=== PATIENT | male | born 1955 | race Caucasian/White ===

== ENCOUNTER → 2018-09-16 | Outpatient (CLI) | payer OTHER ==
[~2018-09-16] VITALS: Ht 180.3 cm; Wt 138.3 kg
[~2018-09-16] MED LIST: ACCUPRIL40 MG PO; AMLODIPINE BESY10 MG PO; AMLODIPINE BESYL5 MG PO; ASPIRIN EC325 M1 PO; AUGMENTIN 875875 M1 PO; BYSTOLIC 5 MG5 M1; BYSTOLIC10 MG PO; CELEBREX 200 M200 M1 PO; CENTRUM SILVER1 EAC4 PO; COLACE100 MG PO; DUONEB 2.5-0.5 M3 ML INH; EFFIENT10 MG PO; FISH OIL 1,0001 EAC5 PO; HYDROCHLOROTHIA25 M1 PO; LASIX 40 MG TAB40 M1 PO; LIPITOR 20 MG T20 M1 PO; MULTIVITAMINS1 EAC7; NICOTINE TRANSD21 M1 TRANSDERM; OMEPRAZOLE 20 M20 M1 PO; OXYCONTIN CR 1010 MG PO; PERCOCET 10-321 EACH PO; POTASSIUM CHLO10 ME1 PO; PREDNISONE 5 MG5 M1 PO; PROAIR HFA8.5 GM INH; QUINU10 PD PO; ROBAXIN 750 MG750 M1 PO; SYMBICORT160 MCG/4. INH; VASCEPA1 GM PO; VENTOLIN HFA INH8 GM INH; VYTORIN 10-201 EACH PO; VYTORIN 10-401 EACH PO; ZOLOFT100 MG PO
[2018-09-16 07:11] VITALS: BP 154/76
--- NOTE | 2018-09-21 15:38 | CATHLAB ---
[facility] [place] [address] INVASIVE PROCEDURE REPORT Name: KORIN MOFFETT Room #: REG CL [place]#: [id number] ������������� Admission: 09/16/18 ������������� Attend Phys: Jose Camacho, Discharge: ��� ������������� ��� Date of : 51 Date of Service: 09/21/18 1538 �� Report #: [id number] �������� ��������������������������������������������[id number] THIS REPORT FOR: //name// APPROVED REPORT Study performed: 09/16/2018 07:55:03 Patient Details The patient is a 63 year-old male Event Personnel Jose Camacho Probation Supervisor, Effie Lozoya RN, Aliza Weber Jackson, Valisa Monitor Procedures Performed Right and Left Heart Cath w/or w/o Coronarie [id number] [facility] Indication Chest pain Procedure Narrative The Right Groin^ was infiltrated with 1% Lidocaine subcutaneous anesthesia. A Right Heart Catheterization was performed with a 7 Fr. Sylvester-Anshu catheter and pressure were recorded. Cardiac outputs were obtained by the Thermal Dilution method. A PINNACLE 6FR Sheath #[id number] sheath was inserted into the RFA^. Coronary angiography was performed using coronary diagnostic catheters. The right coronary system was accessed and visualized with a JR4 catheter. The left coronary system was accessed and visualized with a JL4 catheter. The left ventricle was accessed and visualized with a PIGTAIL catheter. Left ventriculogram was performed in TRIANA projection. An aortogram of the abdominal aorta was performed. Pre-demployment femoral angiogram was performed . Closure device was deployed with a Fr MYNXGRIP 6/7F [id number]. Hemostasis was obtained with manual pressure following sheath removal without any complications. The patient tolerated the procedure well and there were no complications associated with the procedure. There was no hematoma. Intraoperative Conscious Sedation Sedation start time: 0810 Case end Time: 0850 Fentanyl 100 mcg Versed 2.0 mg Fluoro Time: 5.10 minutes [facility] [place] [address] INVASIVE PROCEDURE REPORT Name: KORIN MOFFETT J CARLOS Room #: REG [facility]#: [id number] ������������� Admission: 09/16/18 ������������� Attend Phys: Jose Camacho, Discharge: ��� ������������� ��� Date of : 51 Date of Service: 09/21/18 1538 �� Report #: [id number] �������� ��������������������������������������������[id number] Dose: DAP 21288.00 cGycm2 1513 mGy Contrast Type and Amount: Omnipaque 145 ml Hemodynamics The right atrial mean pressure is 15 mmHg. The pulmonary artery pressure is 55/23 mmHg with a mean of 36 mmHg. The mean pulmonary capillary wedge pressure is 17 mmHg. The aortic pressure is 133/70 mmHg with a mean of 96 mmHg. The left ventricular pressure is 148/7 mmHg with a mean of mmHg. The left ventricular end diastolic pressure is 28 mmHg. The cardiac output using thermo method is 7.93 L/min. The cardiac index using thermo method is 3.15 L/min/m2. Conclusion #1 normal left ventricular size with inferior basilar akinesis EF 45-50% #2 abdominal aorta mildly tortuous but no occlusive disease renal arteries appear patent #3 long left main with mild distal narrowing giving rise to LAD and circumflex nonocclusive #4 LAD extends around the apex mild disease proximal provides collateral filling to a small PDA through a collateral branch #5 circumflex OM with mild disease large but nondominant #6 right coronary artery with proximal stent with mild in-stent restenosis proximal mid segment 50% unchanged the PDA is distally occluded and filled via the left system. #7 subtle right heart catheterization with cardiac output by thermodilution see above hemodynamics. ��������������������������������������������� <ELECTRONICALLY SIGNED> ���������������������������������������� By: Jose Camacho MD, FACC ��������������������������������������������� 09/21/18 1538 1538 1538 Jose Camacho MD, FACC /INF
== END | disposition home or self-care (01) ==
LOC: CATH 06:34
DX: I25.10 Atherosclerotic heart disease of native coronary artery without angina pectoris (principal); T82.855A Stenosis of coronary artery stent, initial encounter; I10 Essential (primary) hypertension; I25.2 Old myocardial infarction; E78.5 Hyperlipidemia, unspecified; J44.9 Chronic obstructive pulmonary disease, unspecified; K21.9 Gastro-esophageal reflux disease without esophagitis; E66.09 Other obesity due to excess calories; G47.33 Obstructive sleep apnea (adult) (pediatric); Z98.890 Other specified postprocedural states; Z79.899 Other long term (current) drug therapy; Z95.5 Presence of coronary angioplasty implant and graft; Z87.891 Personal history of nicotine dependence

== ENCOUNTER → 2019-05-19 | Outpatient (CLI) | payer OTHER | LOC: RAD 09:48 | DX: I51.7 Cardiomegaly (principal); J92.9 Pleural plaque without asbestos; J44.9 Chronic obstructive pulmonary disease, unspecified ==

== ENCOUNTER → 2019-05-25 | Outpatient (CLI) | payer OTHER | LOC: CAT 11:14 | DX: Z12.2 Encounter for screening for malignant neoplasm of respiratory organs (principal); R91.1 Solitary pulmonary nodule; J98.4 Other disorders of lung; Z87.891 Personal history of nicotine dependence ==

== ENCOUNTER 2019-06-19 13:37 | Emergency (ER) | payer OTHER ==
[~2019-06-19] VITALS: Ht 180.3 cm; Wt 138.3 kg
--- NOTE | ~2019-06-19 | EKG ---
[facility] [place] [address] ELECTROCARDIOGRAM REPORT Name: ZUHAIRKORIN AMBRIZ Room #: PRE M..#: [id number] Admission: Attend Phys: Discharge: Date of : 51 Report #: [id number] THIS REPORT FOR: cc: Ruby Beltran MD ~ THIS REPORT FOR: //name// [facility] ED Test Date: 2019-06-19 Test Time: 13:40:08 Pat Name: KORIN MOFFETT Department: Room: Gender: M Dining Manager: JEISON : 1955 Requested By: Mariela Suarez Order Number: [id number] MD: Measurements Intervals [place] Rate: 81 P: -53 CA: 244 QRS: -82 QRSD: 146 T: 58 QT: 414 QTc: 481 Interpretive Statements Sinus or ectopic atrial rhythm Ventricular trigeminy Prolonged CA interval RBBB and LAFB Compared to ECG 07/01/2014 06:40:32 Ectopic atrial rhythm now present Ventricular premature complex(es) now present Left anterior fascicular block now present Right bundle-branch block now present Sinus rhythm no longer present Myocardial infarct finding no longer present [email or web address] By: 1340 1340 [place], [place] /EPI
[2019-06-19] MEDS ORDERED: CHILDREN'S ASPI81 M1 PO (13:46)
[2019-06-19 13:56] LABS: ABSOLUTE NEUTROPHILS 8.9 thou/uL (1.4-8.2); BASOPHILS 0.6 % (0.0-2.0); EOSINOPHILS 0.5 % (0.0-3.0); HEMATOCRIT 45.1 % (42.0-52.0); HEMOGLOBIN 14.8 gm/dL (14.0-18.0); LYMPHOCYTES 7.2 % (24.0-44.0); MCH 32.3 pg (26.0-34.0); MCHC 32.7 g/dL (28.0-37.0); MCV 98.5 fL (80.0-100.0); MONOCYTES 10.2 % (1.0-8.0); PLATELET COUNT 174 thou/uL (150-400); POLYS 81.5 % (36.0-66.0); RBC 4.58 mil/uL (4.50-6.00); RDW 13.9 % (10.5-14.5); WBC 10.9 thou/uL (4.0-11.0)
[2019-06-19 14:05] LABS: CALCIUM 8.6 mg/dL (8.5-10.1); CREATININE 1.2 mg/dL (0.7-1.3); POTASSIUM 3.7 mmol/L (3.5-5.1)
[2019-06-19 14:11] LABS: ALBUMIN 3.7 g/dL (3.4-5.0); TOTAL BILIRUBIN 0.8 mg/dL (<0.1-1.0); TOTAL PROTEIN 7.5 g/dL (6.4-8.2)
[2019-06-19 14:36] LABS: URINE BILIRUBIN NEGATIVE (Negative); URINE BLOOD 1+ (Negative); URINE CLARITY CLEAR; URINE COLOR YELLOW; URINE GLUCOSE-RANDOM* NEGATIVE (Negative); URINE KETONES NEGATIVE (Negative); URINE LEUKOCYTES-REFLEX NEGATIVE (Negative); URINE NITRITE-REFLEX NEGATIVE (Negative); URINE PROTEIN (DIPSTICK) 2+ (Negative); URINE SPECIFIC GRAVITY >= 1.030 (1.005-1.035); URINE UROBILINOGEN 0.2 E.U./dl (0.2-1.0)
[2019-06-19 14:47] LABS: BACTERIA-REFLEX None Seen /HPF (None Seen); CASTS None Seen /LPF (None Seen); CRYSTALS None Seen /LPF (None Seen); SQUAMOUS 0-3 Few /LPF (0-3); URINE RBC 0-2 Rare /HPF (0-2); URINE WBC-REFLEX 0-5 Rare /HPF (0-5)
[2019-06-19] MEDS ORDERED: NORCO 5-325 TA1 EAC1 PO (15:53)
[2019-06-19] MEDS ORDERED: IBUPROFEN 400400 M2 PO (15:53)
[2019-06-19] MEDS ORDERED: ZOFRAN ODT4 MG PO (15:53)
[2019-06-19 16:27] VITALS: BP 114/54
== END 2019-06-19 16:29 | disposition home or self-care (01) ==
LOC: ER 13:37
PROVIDERS: Emergency Medicine; Nurse Practitioner Family
DX: J11.1 Influenza due to unidentified influenza virus with other respiratory manifestations (principal); I10 Essential (primary) hypertension; J44.9 Chronic obstructive pulmonary disease, unspecified; K21.9 Gastro-esophageal reflux disease without esophagitis; G47.30 Sleep apnea, unspecified; F17.210 Nicotine dependence, cigarettes, uncomplicated; Z95.5 Presence of coronary angioplasty implant and graft

== ENCOUNTER → 2019-11-21 | Outpatient (CLI) | payer OTHER ==
[~2019-11-21] MED LIST changes: +CHILDREN'S ASPI81 M1 PO; +IBUPROFEN 400400 M2 PO; +NORCO 5-325 TA1 EAC1 PO; +ZOFRAN ODT4 MG PO
== END ==
LOC: CAT 12:43
PROVIDERS: ATTEND Internal Medicine
DX: R91.8 Other nonspecific abnormal finding of lung field (principal)

== ENCOUNTER → 2020-06-01 | Outpatient (CLI) | payer OTHER | LOC: SJCVC 15:11 | PROVIDERS: ATTEND Internal Medicine Cardiovascular Disease | DX: R94.31 Abnormal electrocardiogram [ECG] [EKG] (principal); I45.10 Unspecified right bundle-branch block; I25.10 Atherosclerotic heart disease of native coronary artery without angina pectoris; I10 Essential (primary) hypertension; E78.00 Pure hypercholesterolemia, unspecified; I25.5 Ischemic cardiomyopathy; J44.9 Chronic obstructive pulmonary disease, unspecified; R06.02 Shortness of breath; K21.9 Gastro-esophageal reflux disease without esophagitis; F17.210 Nicotine dependence, cigarettes, uncomplicated; Z86.74 Personal history of sudden cardiac arrest; Z87.01 Personal history of pneumonia (recurrent); Z79.899 Other long term (current) drug therapy; Z72.89 Other problems related to lifestyle ==

== ENCOUNTER → 2020-07-31 | Outpatient (CLI) | payer OTHER | LOC: SJCVC 10:45 | PROVIDERS: ATTEND Nurse Practitioner | DX: R94.31 Abnormal electrocardiogram [ECG] [EKG] (principal); I45.10 Unspecified right bundle-branch block; R00.1 Bradycardia, unspecified; I44.0 Atrioventricular block, first degree; I25.10 Atherosclerotic heart disease of native coronary artery without angina pectoris; I10 Essential (primary) hypertension; E78.00 Pure hypercholesterolemia, unspecified; I25.5 Ischemic cardiomyopathy; J44.9 Chronic obstructive pulmonary disease, unspecified; R06.02 Shortness of breath; K21.9 Gastro-esophageal reflux disease without esophagitis; G47.33 Obstructive sleep apnea (adult) (pediatric); F17.210 Nicotine dependence, cigarettes, uncomplicated; F12.90 Cannabis use, unspecified, uncomplicated; Z79.899 Other long term (current) drug therapy; Z79.82 Long term (current) use of aspirin; Z72.89 Other problems related to lifestyle ==

== ENCOUNTER → 2020-10-25 | Outpatient (CLI) | payer OTHER | LOC: CAT 14:39 | PROVIDERS: ATTEND Internal Medicine | DX: R91.8 Other nonspecific abnormal finding of lung field (principal); I25.10 Atherosclerotic heart disease of native coronary artery without angina pectoris; Z95.828 Presence of other vascular implants and grafts ==

== ENCOUNTER → 2021-02-06 | Outpatient (CLI) | payer OTHER | LOC: SJCVCIMAG 08:20 | PROVIDERS: ATTEND Internal Medicine Cardiovascular Disease | DX: R94.31 Abnormal electrocardiogram [ECG] [EKG] (principal); I48.92 Unspecified atrial flutter; I45.10 Unspecified right bundle-branch block; I25.10 Atherosclerotic heart disease of native coronary artery without angina pectoris; I10 Essential (primary) hypertension; E78.00 Pure hypercholesterolemia, unspecified; I25.5 Ischemic cardiomyopathy; J44.9 Chronic obstructive pulmonary disease, unspecified; F17.210 Nicotine dependence, cigarettes, uncomplicated; Z87.891 Personal history of nicotine dependence; Z79.899 Other long term (current) drug therapy; Z79.82 Long term (current) use of aspirin; Z72.89 Other problems related to lifestyle; F12.90 Cannabis use, unspecified, uncomplicated ==

== ENCOUNTER → 2021-02-28 | Outpatient (CLI) | payer OTHER ==
[~2021-02-28] VITALS: Ht 180.3 cm; Wt 136.1 kg
[~2021-02-28] MED LIST changes: +ARNUITY ELLIP200 MCG INH; +ARTHRITIS PAIN100 GM TOP; +ARTHRITIS PAIN650 M3 PO; +BETAMETHASONE D50 G2 TOP; +CRESTOR40 MG PO; +MELATONIN10 M3 PO; +PLAVIX 75 MG TA75 MG PO; +PROZAC20 M1 PO; +TERBINAFINE HC250 MG PO; +TIZANIDINE HCL4 M1 PO; +TORSEMIDE20 MG PO; +ZETIA10 MG PO
[2021-02-28 13:26] VITALS: BP 146/78
--- NOTE | 2021-02-28 14:02 | NUR ---
Pain Clinic Assessment: 1. History of Osteoarthritis: SPINE History of Rheumatoid Arthritis: DENIES 2. Height: 5 ft. 11 in. 180.3 cm. Weight: 300.0 lb. oz. 136.080 kg. Patient's BMI: 41.9 3. Vital Signs: BP: 146/78 Pulse: 61 Resp: 20 Temp: 02 Sat: 97 ECG Mon: 4. Pain Intensity: 9 TO 10 5. Fall Risk: Dizziness: N Needs help standing or walking: N Fallen in the last 3 months: N Fall risk comments: 6. Patient on Blood Thinner: Y 7. History of Hypertension: Y 8. Opioid Therapy greater than 6 weeks: N Opiate Contract Signed: 9. Risk Assessment Tool Provided: LOW-0 10. Functional Assessment Tool: 53 11. Recreational Drug Use: Never Drug Type: Tobacco Use: Current Every Day Smoker Tobacco Type: Cigarettes Amount or Packs/day: How Many Years: 50 Alcohol Use: Yes Frequency: Weekly Quant: 2-3
== END ==
LOC: PAIN 11:01
PROVIDERS: ATTEND Anesthesiology Pain Medicine
DX: M47.814 Spondylosis without myelopathy or radiculopathy, thoracic region (principal); M43.22 Fusion of spine, cervical region; M40.294 Other kyphosis, thoracic region; I10 Essential (primary) hypertension; K21.9 Gastro-esophageal reflux disease without esophagitis; I25.10 Atherosclerotic heart disease of native coronary artery without angina pectoris; Z95.5 Presence of coronary angioplasty implant and graft